=== PATIENT | female | born 1955 | race Caucasian/White ===

== ENCOUNTER 2017-06-02 13:08 | Emergency (ER) | payer OTHER ==
[~2017-06-02] VITALS: Ht 165.1 cm; Wt 58.7 kg
[~2017-06-02 13:08] MED LIST: ACET-1145 PO; CLIN-73 PO; IBUP-1542 PO; LAMO100T83 PO; LISD20CA3 PO; LISD50CA3 PO; METH500T PO
[2017-06-02 13:41] VITALS: Ht 165.1 cm; Wt 58.7 kg
[2017-06-02] MEDS ORDERED: DIPHTH/TET/ACEL PERTUSS (ADULT) 0.5 ML VIAL IM* ONE (14:00)
[2017-06-02] MEDS ORDERED: DOXYCYCLINE 100 MG TAB PO ONE (14:00)
[2017-06-02] MEDS ORDERED: CLINDAMYCIN 300 MG CAP PO ONE (14:00)
[2017-06-02] MEDS ORDERED: DOXY100T20 PO (14:07)
[2017-06-02] MEDS ORDERED: BACI28.34 TOP (14:07)
[2017-06-02] MEDS ORDERED: IBUP400T22 PO (14:07)
[2017-06-02] MEDS ORDERED: CLIN-73 PO (14:07)
--- NOTE | 2017-06-02 14:16 | ERD ---
ER Documentation Chief Complaint Chief Complaint dog bite/attack today; wounds to the hands and knees HPI 61-year-old female states that she was [place], and states that she was attacked by a pit bull today. She presents with multiple superficial bites to her hands with abrasions to her knees. She does not recall shot was. She has no weakness, paresthesias. ROS All systems reviewed and are negative except as per history of present illness. Medications Home Meds Active Scripts Ibuprofen* (Motrin*) 400 Mg Tab, 400 MG PO Q6, #30 TAB Prov:MONTSERRAT BARKER PA-C 06/02/17 Bacitracin* (Bacitracin Zinc Oint*) 28.35 Gm Oint, 1 APPLIC TOP BID, #1 TUB APPLI TO Prov:MONTSERRAT BARKER PA-C 06/02/17 Clindamycin Hcl* (Clindamycin Hcl*) 300 Mg Capsule, 300 MG PO TID for 7 Days, CAP Prov:MONTSERRAT BARKER PA-C 06/02/17 Doxycycline Hyclate* (Doxycycline Hyclate*) 100 Mg Tablet.dr, 100 MG PO BID for 7 Days, TAB Prov:MONTSERRAT BARKER PA-C 06/02/17 Lamotrigine* (Lamictal*) 100 Mg Tablet, 100 MG PO DAILY, #15 TAB Prov:RUY GASPAR NP 10/23/15 Acetaminophen-Codeine (Tylenol With Codeine #3 Tablet) 300-30 Mg Tablet, 1 TAB PO Q4H Y for PAIN, #10 TAB Prov:RUY GASPAR NP 10/23/15 Clindamycin Hcl* (Clindamycin Hcl*) 300 Mg Capsule, 300 MG PO TID for 10 Days, CAP Prov:KEYONNA SOLARES 10/20/15 Lisdexamfetamine Dimesylate (Vyvanse) 50 Mg Capsule, 50 MG PO DAILY, #30 CAP Prov:KEYONNA SOLARES 10/20/15 Lamotrigine* (Lamictal*) 100 Mg Tablet, 100 MG PO DAILY, #20 TAB Prov:LUPIS WALTER DO 10/05/15 Ibuprofen* (Ibuprofen*) 600 Mg Tablet, 600 MG PO Q8, #30 TAB Prov:EMILIE WALTERSTLISAS AMaya DO 10/05/15 Methocarbamol* (Robaxin*) 500 Mg Tab, 500 MG PO Q8, #20 TAB Prov:LUPIS WALTER DO 10/05/15 Lisdexamfetamine Dimesylate (Vyvanse) 20 Mg Capsule, 20 MG PO AM, #30 CAP Prov:LUPIS WALTER DO 10/05/15 Allergies Allergies: Coded Allergies: penicillin (Verified Allergy, Unknown, 06/02/17) PMhx/Soc Hx Psychiatric Problems: Yes Hx Alcohol Use: Yes Hx Substance Use: No Hx Tobacco Use: Yes Physical Exam Vitals Vital Signs Date Time Temp Pulse Resp B/P Pulse Ox O2 Delivery O2 Flow Rate FiO2 06/02/17 13:41 98.2 99 18 140/85 96 Physical Exam General: Well-developed, well-nourished. The patient appears in no acute distress. HEENT: Head is normocephalic, atraumatic. No scleral icterus. Neck: Supple. Nontender. Lungs: Clear to auscultation. Normal air movement. Heart: Regular rate and rhythm. S1 and S2 are normal. No murmurs, gallops, or rubs. Abdomen: Nondistended. Extremities: No clubbing or cyanosis. Moving extremities x 4. No weakness. Neurologic: Alert and oriented 3. No focal deficits. Normal speech and gait. Skin: Multiple abrasions to bilateral hands, bilateral knees. No active bleeding. Results 24 hrs Current Medications Medications (Trade) Dose Ordered Sig/Janee Route PRN Reason Start Time Stop Time Status Last Admin Dose Admin Diphtheria/ Tetanus/Acell Pertussis (Adacel) 0.5 ml ONCE ONCE IM* 06/02/17 14:00 06/02/17 14:01 DC 06/02/17 14:09 Doxycycline Hyclate (Vibramycin) 100 mg ONCE ONCE PO 06/02/17 14:00 06/02/17 14:01 DC 06/02/17 14:09 Clindamycin HCl (Cleocin) 300 mg ONCE ONCE PO 06/02/17 14:00 06/02/17 14:01 DC 06/02/17 14:09 Loratadine (Claritin) 10 mg ONCE ONCE PO 06/02/17 14:30 06/02/17 14:31 DC 06/02/17 14:38 Ibuprofen (Motrin) 600 mg ONCE ONCE PO 06/02/17 15:00 06/02/17 15:01 DC 06/02/17 14:46 Procedures/MDM ED course: Patient's tetanus was updated. Patient was given her first dose of doxycycline, clindamycin due to penicillin allergy. For pain she was given ibuprofen 600 mg. She complains of rhinitis symptoms, and was given loratadine. Wound care was done, irrigation, she eloped after, did not receive her prescription although she was informed of the risk of infection. Medical decision makin-year-old female comes in with multiple superficial dog bites, the patient has abrasions, and a superficial cut from a dog. No areas that will require laceration repair. She was given her first dose of doxycycline and clindamycin however she has eloped from the emergency department after waiting for her wounds to be covered. Departure Diagnosis: Primary Impression: Dog bite Condition: Good Patient Instructions: Dog Bite MONTSERRAT BARKER PA-C Jun 02, 2017 14:16
[2017-06-02] MEDS ORDERED: LORATADINE 10 MG TAB PO ONE (14:30)
[2017-06-02] MEDS ORDERED: IBUPROFEN 600 MG TAB PO ONE (15:00)
== END 2017-06-02 15:06 | disposition left against medical advice (07) ==
LOC: FTE 13:08
DX: S61.451A Open bite of right hand, initial encounter (principal); S61.452A Open bite of left hand, initial encounter; S80.211A Abrasion, right knee, initial encounter; S80.212A Abrasion, left knee, initial encounter; W54.0XXA Bitten by dog, initial encounter; Y92.9 Unspecified place or not applicable; Z87.891 Personal history of nicotine dependence
CPT/HCPCS: 90471; 90715; Z7502; Z7610